=== PATIENT | male | born 1990 | race Caucasian/White ===

== ENCOUNTER 2024-06-15 21:01 | Outpatient (CLI) | payer MEDICAID, SELFPAY | END 2024-06-15 21:02 | disposition home or self-care (01) | LOC: SLEEP 21:03 | PROVIDERS: PCP Physician Assistant; Visit Provider Physician Assistant | DX: G47.33 Obstructive sleep apnea (adult) (pediatric) (principal); G47.10 Hypersomnia, unspecified | CPT/HCPCS: 95810 ==